=== PATIENT | female | born 1985 | race African-American/Black ===

== ENCOUNTER 2017-06-04 16:40 | Emergency (ER) | payer MEDICAID ==
[2017-06-04] MEDS ORDERED: BUPIVACAINE HCL 0.5 % INJ/PF 30 ML SDV INJ ONE (17:20)
[2017-06-04] MEDS ORDERED: PENICILLIN V POTASSIUM 500 MG TABLET PO ONE (17:23)
--- NOTE | 2017-06-04 17:24 | ER Document Report ---
HPI - HPI Patient complains to provider of: toothache Pain Level: 5 Context: patient is a 31 year old 8 week female who presents to the ED complaining of toothache of tooth 18 which had been fractured years ago. She states she has been having pain since yesterday after dinner. She denies any foul drainage or odor, fevers or chills. Patient states that she is ready taking Keflex for UTI prescribed by her doctor. And she plans on following up with her dentist on Wednesday. - REPRODUCTIVE Reproductive: DENIES: : Past Medical History - Social History Smoking Status: Former Smoker Family History: Arthritis, DM, Hypertension, Malignancy, Other - No early heart attack. No pulmonary emboli. - Past Medical History Cardiac Medical History: Denies: Hx Coronary Artery Disease, Hx Heart Attack, Hx Hypertension Pulmonary Medical History: Denies: Hx Asthma, Hx Bronchitis, Hx COPD, Hx Pneumonia Neurological Medical History: Denies: Hx Cerebrovascular Accident, Hx Seizures Endocrine Medical History: Reports: Hx Diabetes Mellitus Type 2 Musculoskeltal Medical History: Denies Hx Arthritis Psychiatric Medical History: Reports: Hx Anxiety Past Surgical History: Reports: Hx Gynecologic Surgery - fibroid removal - Immunizations Immunizations up to date: Yes Hx Diphtheria, Pertussis, Tetanus Vaccination: Yes Vertical Provider Document - CONSTITUTIONAL Agree With Documented VS: Yes Notes: PHYSICAL EXAM GENERAL: Alert, interacts well. HEENT: NCAT, evidence of fracture of tooth 18 without any gingival tenderness, inflammation, abscess, purulent drainage MMM, Uvula midline. Airway patent. No evidence of tonsillar enlargement, peritonsillar abscess, facial swelling NECK: Full range of motion. Supple. Trachea midline. No evidence of Kem's angina LUNGS: Clear to auscultation bilaterally, no wheezes, rales, or rhonchi. No respiratory distress. HEART: Regular rate and rhythm. No murmurs, gallops, or rubs. NEUROLOGICAL: Alert and oriented x4. Normal speech. PSYCH: Normal affect, normal mood. - INFECTION CONTROL TRAVEL OUTSIDE OF THE [place] IN LAST 30 DAYS: No - RESPIRATORY O2 Sat by Pulse Oximetry: 98 Course - Re-evaluation Re-evalutation: 06/04/17 17:58 Presentation is most consistent with likely an infected tooth. Airway is patent. Vitals within normal limits. Patient is able swallow without any difficulty. There is no significant facial swelling. Patient to continue current antibiotics. I've instructed to follow-up with dentistry as earliest ability for definitive management. Return precautions and follow-up recommendations have been discussed at length. - Vital Signs Vital signs: Temp Pulse Resp BP Pulse Ox 98.5 F 93 16 128/78 H 98 06/04/17 16:44 06/04/17 16:44 06/04/17 16:44 06/04/17 16:44 06/04/17 16:44 Procedures - Additional Procedures Dental block Additional Procedures: Other - Patient received a 5 cc 0.5% Sensorcaine infra alveolar block of the left lower jaw with complete resolution of her pain and no complications Discharge - Discharge Clinical Impression: Toothache Condition: Good Disposition: HOME, SELF-CARE Additional Instructions: You have been seen for dental pain. It is very important that you follow-up with a dentist for definitive care. Please return if you develop fever greater than 101, swelling in your face, vomiting, difficulty breathing or swallowing, or any other symptoms that are concerning to you. For pain you should take Tylenol 325 mg to 650 mg every 6-8 hours as needed for pain [facility] [address] [place], [place] Wednesday mornings, by appointment [facility] [address] [place] [address] [facility] [address] [facility] [address] [facility] ([facility]) [facility] Emergency Department [facility] [address] [email or web address] [address] [place] [address] Wednesday- 8:00am to 5:00 pm Will see patients from other [facility]. Charges based on income and family size and accepts Medicare, Medicaid, and Insurances Will pull molars [facility]ics [facility] [id number] Hours of Operation 8:00 am - 4:30 pm weekdays The following dental offices accept Medicaid: [facility] Dr. Holbrook Dr. Barriga Dr. Quintana Dr. Randolph Laurent [place], [place], and [place] oral surgery Dr. Schafer ([place]) Dr. Walter ([place]) [facility] Drs. Valencia ([place]) Dr. Brown ([place]) [facility] Dr. Trevizo ([place]) Drs. Lawson and ([place]) Medicaid Care Line Referrals: MCKENNA CHUA MD [Primary Care Provider] - Follow up as needed
[2017-06-04 18:31] VITALS: BP 123/76
== END 2017-06-04 18:28 | disposition home or self-care (01) ==
LOC: ER 16:40
PROC: 3E0T3BZ Introduction of Anesthetic Agent into Peripheral Nerves and Plexi, Percutaneous Approach (ICD-10-PCS; principal; 2017-06-04)
DX: K08.89 Other specified disorders of teeth and supporting structures (principal); Z87.891 Personal history of nicotine dependence
CPT/HCPCS: 99282

== ENCOUNTER 2017-07-03 17:45 | Emergency (ER) | payer MEDICAID ==
[2017-07-03 17:50] VITALS: BP 123/73
--- NOTE | 2017-07-03 18:45 | ER Document Report ---
ED ENT - General Chief Complaint: Sore Throat Stated Complaint: THROAT PAIN,COUGH Time Seen by Provider: 07/03/17 18:00 Mode of Arrival: Ambulatory Information source: Patient Notes: 31-year-old female presented to ED for itchy throat 2 days ago then cough and sore throat yesterday. She had some postnasal drip. She is 5-1/2 months . TRAVEL OUTSIDE OF THE [place] IN LAST 30 DAYS: No - HPI Patient complains to provider of: Throat problem Onset: Other Onset/Duration: Gradual - 2 days Quality of pain: Other - Sore Severity: Moderate Pain Level: 3 Context: Recent Illness Location of pain: Throat Associated symptoms: Cough, Runny nose, Sinus drainage, Sore throat, Other - Have an half months Similar symptoms previously: Yes Recently seen / treated by doctor: Yes - Related Data Allergies/Adverse Reactions: No Known Allergies Allergy (Verified 07/03/17 17:45) Past Medical History - General Information source: Patient - Social History Smoking Status: Former Smoker Cigarette use (# per day): No Chew tobacco use (# tins/day): No Smoking Education Provided: No Frequency of alcohol use: None Drug Abuse: None Lives with: Family Family History: Arthritis, DM, Hypertension, Malignancy, Other - No early heart attack. No pulmonary emboli. Patient has suicidal ideation: No Patient has homicidal ideation: No - Past Medical History Cardiac Medical History: Reports: None Pulmonary Medical History: Reports: None EENT Medical History: Reports: None Neurological Medical History: Reports: None Endocrine Medical History: Reports: Hx Diabetes Mellitus Type 2 Renal/ Medical History: Reports: None Malignancy Medical History: Reports: None GI Medical History: Reports: None Musculoskeltal Medical History: Reports None Skin Medical History: Reports None Psychiatric Medical History: Reports: Hx Anxiety Traumatic Medical History: Reports: None Infectious Medical History: Reports: None Past Surgical History: Reports: Hx Gynecologic Surgery - fibroid removal - Immunizations Immunizations up to date: Yes Hx Diphtheria, Pertussis, Tetanus Vaccination: Yes Review of Systems - Review of Systems Constitutional: No symptoms reported EENT: Nose discharge, Sinus discharge, Throat pain Cardiovascular: No symptoms reported Respiratory: Cough Gastrointestinal: No symptoms reported Genitourinary: No symptoms reported Female Genitourinary: No symptoms reported Musculoskeletal: No symptoms reported Skin: No symptoms reported Hematologic/Lymphatic: No symptoms reported Neurological/Psychological: No symptoms reported Physical Exam - Vital signs Vitals: Temp Pulse Resp BP Pulse Ox 98.1 F 86 18 123/73 100 07/03/17 17:49 07/03/17 17:49 07/03/17 17:49 07/03/17 17:49 07/03/17 17:49 Interpretation: Normal - General General appearance: Appears well, Alert - HEENT Head: Normocephalic, Atraumatic Eyes: Normal Pupils: PERRL Ears: Normal External canal: Normal Tympanic membrane: Normal Sinus: Normal Nasal: Purulent discharge, Swelling Mouth/Lips: Normal Mucous membranes: Normal Pharynx: Post nasal drainage Neck: Normal - Respiratory Respiratory status: No respiratory distress Chest status: Nontender Breath sounds: Nonproductive cough. No: Productive cough, Rales, Rhonchi, Stridor, Wheezing Chest palpation: Normal - Cardiovascular Rhythm: Regular Heart sounds: Normal auscultation Murmur: No - Abdominal Inspection: Normal Distension: No distension Bowel sounds: Normal Tenderness: Nontender Organomegaly: No organomegaly - Back Back: Normal, Nontender - Extremities General upper extremity: Normal inspection, Nontender, Normal color, Normal ROM , Normal temperature General lower extremity: Normal inspection, Nontender, Normal color, Normal ROM , Normal temperature, Normal weight bearing. No: Puja's sign - Neurological Neuro grossly intact: Yes Cognition: Normal Orientation: AAOx4 [place] Coma Scale Eye Opening: Spontaneous [place] Coma Scale Verbal: Oriented [place] Coma Scale Motor: Obeys Commands [place] Coma Scale Total: 15 Speech: Normal Motor strength normal: LUE, RUE, LLE, RLE Sensory: Normal - Psychological Associated symptoms: Normal affect, Normal mood - Skin Skin Temperature: Warm Skin Moisture: Dry Skin Color: Normal Course - Vital Signs Vital signs: Temp Pulse Resp BP Pulse Ox 98.1 F 86 18 123/73 100 07/03/17 17:49 07/03/17 17:49 07/03/17 17:49 07/03/17 17:49 07/03/17 17:49 Discharge - Discharge Clinical Impression: URI (upper respiratory infection) Qualifiers: URI type: unspecified URI Qualified Code(s): J06.9 - Acute upper respiratory infection, unspecified Condition: Stable Disposition: HOME, SELF-CARE Additional Instructions: UPPER RESPIRATORY ILLNESS: You have a viral infection of the respiratory passages -- a "cold." This common infection causes nasal congestion, drainage, and often sore throat and cough. It is highly contagious. The disease usually lasts about 10 to 14 days. There is no "cure" for the viral infection -- it must run its course. If there is a complication, such as bacterial infection in the nose, sinuses, middle ear, or bronchial tubes, antibiotics may be required. The antibiotics won't affect the virus. Drink plenty of fluids. A humidifier may help. An expectorant medication or decongestant may make you more comfortable. Use acetaminophen or ibuprofen for fever or aches. See the doctor if fever persists over two days, if there is any significant worsening of your symptoms, or if you simply fail to improve as expected. USE OF ACETAMINOPHEN (Tylenol): Acetaminophen may be taken for pain relief or fever control. It's much safer than aspirin, offering a wider range of "safe" dosages. It is safe during . Some brand names are Tylenol, Panadol, Datril, Anacin 3, Tempra, and Liquiprin. Acetaminophen can be repeated every four hours. The following are maximum recommended dosages: >89 pounds or adults 650 mg to 900 mg Acetaminophen can be repeated every four hours. Maximum dose not to exceed 4000 mg a day. Salt and soda solution 1 quart of water 1 tablespoon of salt 1 teaspoon of baking soda Mixed 3 ingredients together and boil for 1 minute Placed in a covered quart jar Use 1/2 ounce of cold solution to gargle 3 times a day FOLLOW-UP CARE: If you have been referred to a physician for follow-up care, call the physician s office for an appointment as you were instructed or within the next two days. If you experience worsening or a significant change in your symptoms, notify the physician immediately or return to the Emergency Department at any time for re-evaluation. Referrals: MCKENNA CHUA MD [Primary Care Provider] - Follow up as needed [facility] [Provider Group] - Follow up as needed
== END 2017-07-03 18:30 | disposition home or self-care (01) ==
LOC: ER 17:45
DX: J06.9 Acute upper respiratory infection, unspecified (principal); R05 Cough; R09.82 Postnasal drip; R09.89 Other specified symptoms and signs involving the circulatory and respiratory systems; Z87.891 Personal history of nicotine dependence
CPT/HCPCS: 99282

== ENCOUNTER 2017-08-22 14:16 | Outpatient (CLI) | payer MEDICAID ==
[2017-08-22 15:00] LABS: AMORPHOUS SEDIMENT,URINE TRACE /HPF; APPEARANCE,URINE CLOUDY; BILIRUBIN,URINE NEGATIVE (NEGATIVE); COLOR,URINE YELLOW; GLUCOSE, URINE NEGATIVE (NEGATIVE); KETONES,URINE 20 mg/dL (NEGATIVE); LEUKOCYTE ESTERASE,URINE NEGATIVE (NEGATIVE); NITRITE,URINE NEGATIVE (NEGATIVE); PROTEIN,URINE NEGATIVE (NEGATIVE); URINE SPECIFIC GRAVITY 1.013; UROBILINOGEN,URINE NEGATIVE mg/dL (<2.0)
[2017-08-22 15:10] LABS: URINE AMPHETAMINES SCREEN NEGATIVE; URINE BARBITURATES SCREEN NEGATIVE; URINE BENZODIAZEPINES SCREEN NEGATIVE; URINE COCAINE SCREEN NEGATIVE; URINE MARIJUANA (THC) SCREEN NEGATIVE; URINE METHADONE SCREEN NEGATIVE; URINE PHENCYCLIDINE SCREEN NEGATIVE
== END 2017-08-22 15:46 | disposition home or self-care (01) ==
LOC: LC 14:16
PROVIDERS: ATTEND Obstetrics & Gynecology
PROC: 4A1HXCZ Monitoring of Products of Conception, Cardiac Rate, External Approach (ICD-10-PCS; principal; 2017-08-22)
DX: O36.8120 Decreased fetal movements, second trimester, not applicable or unspecified (principal); Z3A.27 27 weeks gestation of pregnancy
CPT/HCPCS: 80307; 81001

== ENCOUNTER 2017-09-28 18:24 | Outpatient (CLI) | payer MEDICAID ==
--- NOTE | 2017-09-28 19:10 | Non Stress Test Report ---
Non Stress Test Datetime Report Generated by CPN: 09/28/2017 19:10 DEMOGRAPHIC EGA NST: 33.1 INDICATION Indication for Study: Diabetes Mellitus; Ordered by Provider VITAL SIGNS Temperature - NST: 98.0 Pulse - NST: 92 RESP - NST: 20 NBPSYS NST: 107 NBPDIA NST: 59 MONITORING Monitor Explained: Monitor Explained; Test Explained; Patient Verbalized Understanding Time on Monitor: 09/28/2017 18:24 Time off Monitor: 09/28/2017 18:58 NST Duration: 34 NST INTERVENTIONS NST Interventions: PO Hydration; Reposition Patient Physician Notified NST: Dr Mancilla BABY A: [id number] BABY A Movement : Present Contraction Frequency : denies FHR Baseline : 140 Accelerations : 15X15 Decelerations : None Variability : Moderate 6-25bpm NST Review: Meets Criteria for Reactive NST NST Review and Verified By : Gilmer Erazo RN NSSy Results: Reactive NST REPORT Report Trigger: Send Report
== END 2017-09-28 19:00 | disposition home or self-care (01) ==
LOC: LC 18:24
PROVIDERS: ATTEND Obstetrics & Gynecology
PROC: 4A1HXCZ Monitoring of Products of Conception, Cardiac Rate, External Approach (ICD-10-PCS; principal; 2017-09-28)
DX: O24.419 Gestational diabetes mellitus in pregnancy, unspecified control (principal); Z3A.33 33 weeks gestation of pregnancy
CPT/HCPCS: 59025

== ENCOUNTER 2017-10-07 16:39 | Outpatient (CLI) | payer MEDICAID ==
--- NOTE | 2017-10-07 17:42 | Non Stress Test Report ---
Non Stress Test Datetime Report Generated by CPN: 10/07/2017 17:42 DEMOGRAPHIC EGA NST: 34.3 INDICATION Indication for Study: Diabetes Mellitus; Ordered by Provider MONITORING Monitor Explained: Monitor Explained; Test Explained; Patient Verbalized Understanding Time on Monitor: 10/07/2017 16:52 Time off Monitor: 10/07/2017 17:39 NST Duration: 47 NST INTERVENTIONS NST Interventions: PO Hydration; Reposition Patient Physician Notified NST: Corinne Francisco Javier CNM BABY A: [id number] BABY A Movement : Present Contraction Frequency : None FHR Baseline : 145 Accelerations : 15X15 Decelerations : None Variability : Moderate 6-25bpm NST Review: Meets Criteria for Reactive NST NST Review and Verified By : KAREEM Norris NST Results: Reactive NST REPORT Report Trigger: Send Report
== END 2017-10-07 17:44 | disposition home or self-care (01) ==
LOC: LC 16:39
PROVIDERS: ATTEND Student in an Organized Health Care Education/Training Program
PROC: 4A1HXCZ Monitoring of Products of Conception, Cardiac Rate, External Approach (ICD-10-PCS; principal; 2017-10-07)
DX: O24.419 Gestational diabetes mellitus in pregnancy, unspecified control (principal); Z3A.34 34 weeks gestation of pregnancy
CPT/HCPCS: 59025

== ENCOUNTER 2017-11-12 20:03 | Outpatient (CLI) | payer MEDICAID ==
--- NOTE | 2017-11-12 23:23 | Non Stress Test Report ---
Non Stress Test Datetime Report Generated by CPN: 11/12/2017 23:23 DEMOGRAPHIC EGA NST: 39.4 INDICATION Indication for Study: Ordered by Provider MONITORING Monitor Explained: Monitor Explained; Test Explained; Patient Verbalized Understanding Time on Monitor: 11/12/2017 21:00 Time off Monitor: 11/12/2017 21:24 NST Duration: 24 NST INTERVENTIONS NST Interventions: PO Hydration; Reposition Patient Physician Notified NST: Dr. Zaldivar BABY A: [id number] BABY A Movement : Present Contraction Frequency : irregular FHR Baseline : 140 Accelerations : 15X15 Decelerations : None Variability : Moderate 6-25bpm NST Review: Meets Criteria for Reactive NST NST Review and Verified By : josé miguel hurley rn NST Results: Reactive NST REPORT Report Trigger: Send Report
== END 2017-11-12 21:34 | disposition home or self-care (01) ==
LOC: LC 20:03
PROVIDERS: ATTEND Student in an Organized Health Care Education/Training Program
PROC: 4A1HXCZ Monitoring of Products of Conception, Cardiac Rate, External Approach (ICD-10-PCS; principal; 2017-11-12)
DX: O47.1 False labor at or after 37 completed weeks of gestation (principal); Z3A.39 39 weeks gestation of pregnancy
CPT/HCPCS: 59025

== ENCOUNTER 2017-11-15 09:55 | Inpatient (IN) | payer MEDICAID ==
[2017-11-15 10:29] LABS: AMNISURE (ROM) POSITIVE (NEGATIVE)
[2017-11-15] MEDS ORDERED: RINGERS SOLUTION,LACTATED 1,000 ML IV ONE (11:06)
[2017-11-15] MEDS ORDERED: DINOPROSTONE 10 MG VAGINAL INSERT.SR ONE (11:16)
[2017-11-15 11:42] LABS: APPEARANCE,URINE SLIGHTLY-CLOUDY; BILIRUBIN,URINE NEGATIVE (NEGATIVE); COLOR,URINE YELLOW; GLUCOSE, URINE NEGATIVE (NEGATIVE); KETONES,URINE NEGATIVE (NEGATIVE); LEUKOCYTE ESTERASE,URINE TRACE (NEGATIVE); NITRITE,URINE NEGATIVE (NEGATIVE); PROTEIN,URINE NEGATIVE (NEGATIVE); UROBILINOGEN,URINE NEGATIVE mg/dL (<2.0)
--- NOTE | 2017-11-15 11:59 | Admission Physical ---
Datetime Report Generated by CPN: 11/15/2017 11:59 CURRENT ADMISSION Chief Complaint: Suspected Ruptured Membranes Indication for Induction: Post Dates Indication for Induction- Other: PROM Admit Impression : Term, Intrauterine Admit Plan: Admit to Unit; Initiate Labor Induction Protocol ALLERGIES Medication Allergies: No Medication Allergies: No Known Allergies (11/15/2017) Latex: No Latex Allergies Food Allergies: None Environmental Allergies: None OBSTETRICAL HISTORY EDC: 11/15/2017 00:00 : 1 Para: 0 Term: 0 : 0 SAB: 0 IAB: 0 Ectopic: 0 Livin Cesareans: 0 VBACs: 0 Multiple Births: 0 Gestational Diabetes: No Rh Sensitization: No Incompetent Cervix: No BRET: No Infertility: No ART Treatment: No Uterine Anomaly: No IUGR: No Hx Previous C/S: No Macrosomia: No Hx Loss/Stillborn: No PIH: No Hx : No Placenta Previa/Abruption: No Depression/PP Depression: No PTL/PROM: No Post Hemorrhage: No Current Procedures: Ultrasound Obstetrical History Comments: G1 - current - T2DM on metformin, late PNC, obesity, uterine fibroid SEE RECORDS Alcohol: No Marijuana : No Cocaine: No Other Illicit Drugs: No Cigarettes: Former Smoker. [id number] Cigarette Comments: Quite at beginning of MEDICAL HISTORY Diabetes: No Diabetes Type: Type II - NIDDM Blood Transfusion: No Pulmonary Disease (Asthma, TB): No Breast Disease: No Hypertension: No Patent Prosecution Paralegal Surgery: No Heart Disease: No Hosp/Surgery: No Autoimmune Disorder: No Anesthetic Complications: No Kidney Disease: No Abnormal Pap Smear: No Neuro/Epilepsy: No Psychiatric Disorders: No Other Medical Diseases: No Hepatitis/Liver Disease: No Significant Family History: No Varicosities/Phlebitis: No Trauma/Violence : No Thyroid Dysfunction: No INFECTIOUS HISTORY Gonorrhea: No Genital Herpes: No Chlamydia: No Tuberculosis: No Syphilis: No Hepatitis: No HIV/AIDS Exposure: No Rash or Viral Illness: No HPV: No PHYSICAL EXAM General: Normal HEENT: Normal Neurologic: Normal Thyroid: Deferred Heart: Normal Lungs: Normal Breast: Deferred Back: Normal Abdomen: Abnormal Genitourinary Exam: Normal Extremities: Abnormal DTRs: Deferred Pelvic Type: Adequate Physical Exam Comments: edema to lower abdomen and legs Vital Signs: Reviewed; Within Normal Limits VAGINAL EXAM Dilatation: ft Effacement: 50 Station: -3 Contraction Comments: rare MEMBRANES Membranes: Ruptured Amniotic Fluid Color: Clear FETUS A EGA: 40.0 Monitoring: External US FHR- Baseline: 145 Variability: Moderate 6-25bpm Decelerations: Variable FHR Category: Category II Estimated Weight (gm): 3200 Presentation: Vertex Presentation- Other: by sono Admit Comment: WITH PROM SINCE 0900 TODAY, CLEAR FLUID. DIABETES TYPE 2 ON METFORMIN. MULTIPLE ANOMALIES, OBESITY, LATE PNC, 17CM FIBROID. C/W DR QUISPE, BLOOD PRODUCTS AVAILABLE. CERVIDIL PLACED AT 1115. GBS POS-PENICILLIN ORDERED PLANS FOR LABOR AND DELIVERY Labor and Delivery: None Pain Management: Epidural Feeding Preference: Breast Benefit of Breast Feed Discussed: Yes Circumcision: N/A INFORMED CONSENT Assignment: Abigail Quispe MD Signature: with User ID: [email or web address] : with User ID: [email or web address]
[2017-11-15 12:03] LABS: HEMOGLOBIN 11.1 g/dL (12.0-15.5); MEAN CORPUSCULAR HGB CONC 33.7 g/dL (32.0-36.0); MEAN CORPUSCULAR VOLUME 89 fl (80-97); PLATELET COUNT 215 10^3/uL (150-450); RED CELL DISTRIBUTION WIDTH 14.6 % (11.5-14.0); WHITE BLOOD COUNT 6.3 10^3/uL (4.0-10.5)
[2017-11-15 12:07] LABS: URINE AMPHETAMINES SCREEN NEGATIVE; URINE BARBITURATES SCREEN NEGATIVE; URINE BENZODIAZEPINES SCREEN NEGATIVE; URINE COCAINE SCREEN NEGATIVE; URINE MARIJUANA (THC) SCREEN NEGATIVE; URINE METHADONE SCREEN NEGATIVE; URINE PHENCYCLIDINE SCREEN NEGATIVE
[2017-11-15] MEDS ORDERED: DINOPROSTONE 10 MG VAGINAL INSERT.SR PV ONE (12:15)
[2017-11-15] MEDS ORDERED: PENICILLIN G-K 5 MILLION UNIT VIAL IV ONE (12:27)
[2017-11-15] MEDS ORDERED: PENICILLIN G-K 5 MILLION UNIT VIAL ONE (12:33)
[2017-11-15] MEDS ORDERED: MEASLES,MUMPS&RUBELLA VACC/PF 0.5 ML VIAL SUBCUT PRN ×2 (12:44→17:20)
[2017-11-15] MEDS ORDERED: DIPHENHYDRAMINE HCL 25 MG CAPSULE PO PRN (12:44)
[2017-11-15] MEDS ORDERED: PSEUDOEPHEDRINE HCL 30 MG TABLET PO PRN (12:44)
[2017-11-15] MEDS ORDERED: PROMETHAZINE HCL 25 MG SUPP.RECT PR PRN (12:44)
[2017-11-15] MEDS ORDERED: PROMETHAZINE HCL 25 MG TABLET PO PRN (12:44)
[2017-11-15] MEDS ORDERED: PROMETHAZINE HCL INJ 25 MG/1 ML VIAL IV PRN ×4 (12:44→17:20)
[2017-11-15] MEDS ORDERED: DIBUCAINE 1% OINTMENT 28 GM TP PRN (12:44)
[2017-11-15] MEDS ORDERED: ZOLPIDEM TARTRATE 5 MG TABLET PO PRN (12:44)
[2017-11-15] MEDS ORDERED: OXYTOCIN/NORMAL SALINE 20 UNIT/1,000 ML RTUINJ IV PRN ×2 (12:44→17:20)
[2017-11-15] MEDS ORDERED: GLYCERIN/WITCH HAZEL LEAF 1 EACH MED..PAD TP PRN (12:44)
[2017-11-15] MEDS ORDERED: MAGNESIUM HYDROXIDE SUSP 30 ML UDCUP PO PRN (12:44)
[2017-11-15] MEDS ORDERED: DIPH/PERTUSS(ACELL)/TETANUS VAC/PF 0.5 ML SYR (>=10YO) IM PRN ×2 (12:44→17:20)
[2017-11-15] MEDS ORDERED: BENZOCAINE/MENTHOL AEROSOL SPRAY 56 ML TOP PRN (12:44)
[2017-11-15] MEDS ORDERED: ACETAMINOPHEN WITH CODEINE #3 TABLET PO PRN ×2 (12:44)
[2017-11-15] MEDS ORDERED: NA PHOS,M-B/NA PHOS,DI-BA (ADULT) 133 ML ENEMA PR PRN (12:44)
[2017-11-15] MEDS ORDERED: IBUPROFEN 800 MG TABLET PO SCH ×2 (14:00→18:00)
[2017-11-15] MEDS ORDERED: ACETAMINOPHEN 100 ML IV PRN ×3 (14:49→17:20)
[2017-11-15] MEDS ORDERED: ACETAMINOPHEN 100 ML IV ONE ×2 (14:59→16:01)
[2017-11-15] MEDS ORDERED: PENICILLIN G POTASSIUM 2,500,000 UNIT in DEXTROSE 5%-WATER 50 ML IV SCH (15:07)
[2017-11-15] MEDS ORDERED: CEFAZOLIN 2 GM/D5W RTU 2 GM/50 ML RTUPB IV ONE (15:50)
[2017-11-15] MEDS ORDERED: CITRIC ACID/SODIUM CITRATE ORAL SOLN 15 ML UDCUP ONE (15:50)
[2017-11-15] MEDS ORDERED: EPHEDRINE SULFATE INJ 50 MG/1 ML AMPULE ONE (15:59)
[2017-11-15] MEDS ORDERED: TRANEXAMIC ACID INJ/PF 1,000 MG/10 ML SDV IV ONE (15:59)
[2017-11-15] MEDS ORDERED: FENTANYL CITRATE INJ/PF 100 MCG/2 ML AMPUL ONE (15:59)
[2017-11-15] MEDS ORDERED: VASOPRESSIN INJ 20 UNIT/1 ML VIAL ONE (16:00)
[2017-11-15] MEDS ORDERED: ONDANSETRON HCL INJ/PF 4 MG/2 ML SDV ONE (16:00)
[2017-11-15] MEDS ORDERED: MIDAZOLAM 2 MG/2 ML INJ ONE (16:00)
[2017-11-15] MEDS ORDERED: MORPHINE SULFATE 10 MG/ML INJ ONE (16:00)
[2017-11-15] MEDS ORDERED: TETRACAINE HCL/PF 20MG/2ML AMPULE (SPINAL) ONE (16:01)
[2017-11-15] MEDS ORDERED: OXYTOCIN 10 UNIT/ML VIAL ONE (16:08)
[2017-11-15] MEDS ORDERED: OXYCODONE-ACETAMINOPHEN 5-325 MG TABLET PO PRN ×3 (16:40→17:20)
[2017-11-15] MEDS ORDERED: MEPERIDINE HCL/PF INJ 25 MG/1 ML DISP.SYRIN IV PRN (16:40)
[2017-11-15] MEDS ORDERED: FENTANYL CITRATE INJ/PF 100 MCG/2 ML AMPUL IV PRN ×3 (16:40)
[2017-11-15] MEDS ORDERED: DIPHENHYDRAMINE HCL 50 MG/ML VIAL IV PRN (16:40)
[2017-11-15] MEDS ORDERED: MORPHINE SULFATE 10 MG/ML INJ IV PRN ×2 (16:40→17:20)
[2017-11-15] MEDS ORDERED: ACETAMINOPHEN 325 MG TABLET PO PRN (17:20)
[2017-11-15] MEDS ORDERED: SIMETHICONE 80 MG TAB.CHEW PO PRN (17:20)
[2017-11-15] MEDS ORDERED: KETOROLAC TROMETHAMINE INJ/PF 30 MG/1 ML SDV ONE (17:47)
--- NOTE | 2017-11-15 17:54 | OPERATIVE REPORT E ---
Operative Report NAME: CISCO SIMMONS : 1985 AGE: 32Y DATE OF SURGERY: 11/15/2017 ROOM: LR200 PREOPERATIVE DIAGNOSES: 1. IUP AT 40 WEEKS AND 1 DAY. 2. NONREASSURING HEART TONES. 3. LARGE INTRAMURAL INTRAUTERINE FIBROID. POSTOPERATIVE DIAGNOSES: 1. IUP AT 40 WEEKS AND 1 DAY. 2. NONREASSURING HEART TONES. 3. LARGE INTRAMURAL INTRAUTERINE FIBROID. OPERATION: Low transverse hysterotomy section. SURGEON: SIXTO QUISPE M.D. ANESTHESIA: Dr. Unger with a spinal. FINDINGS: A female infant in cephalic presentation, with Apgars of 8 and 9. Meconium on amniotomy noted. Large fundal fibroid of the uterus that was preventing the uterus from being exteriorized. Seemed to go the entire width of the uterus, as noted from palpation. ESTIMATED BLOOD LOSS: Approximately 800 mL. PATHOLOGY: Placenta. PROCEDURE: Patient was taken to the operating room, prepared and draped in normal sterile fashion in the supine position with a leftward tilt. A transverse skin incision was made with a scalpel and carried through to the underlying layer of fascia with the same scalpel. The fascia was excised in the midline and extended laterally with Mayos. The fascia was then dissected from the rectus muscle bluntly. The rectus muscle was divided and the peritoneal cavity was entered bluntly, with good visualization of the bladder and the uterus. A bladder blade was inserted, and the hysterotomy was nicked with a scalpel and extended laterally with surgeon finger fracture. The was then delivered atraumatically. The nose and mouth were suctioned with a suction bulb, and the cord was clamped and cut, and the infant was handed off to waiting roller man. Attempted to exteriorize the uterus. Was unsuccessful, due to the uterine size; therefore, the hysterotomy was closed in-situ with 0 Monocryl in a running locked fashion. A second layer of the same suture was used to imbricate to ensure hemostasis. The peritoneal cavity was carefully inspected, and the hysterotomy was noted to be hemostatic. The rectus muscle and peritoneum were reapproximated with a mattress stitch of 2-0 chromic. The fascia was closed with 0 Vicryl. The subcutaneous layer was closed with plain catgut and the skin was closed with 4-0 Vicryl. Patient tolerated procedure well. Sponge, lap and needle counts were correct x2, and the patient was taken to recovery in stable condition. DICTATING PHYSICIAN: SIXTO QUISPE M.D. [id number] PHY#: [id number] ID: [id number] JOB#: [id number] ACCT: [id number] cc:SIXTO QUISPE M.D. > [facility]
[2017-11-15] MEDS ORDERED: DOCUSATE SODIUM 100 MG CAPSULE PO SCH (18:00)
[2017-11-15] MEDS ORDERED: FERROUS SULFATE 325 MG TABLET PO SCH (18:00)
[2017-11-15] MEDS ORDERED: OXYTOCIN/NORMAL SALINE 20 UNIT/1,000 ML RTUINJ ONE (18:23)
--- NOTE | 2017-11-15 20:15 | Delivery Summary ---
Del Sum A-C Datetime Report Generated by CPN: 11/15/2017 20:15 DELIVERY PERSONNEL DELIVERY PERSONNEL: [id number] Delivery Doctor:: Abigail Saldivar MD Anesthesiologist:: Marvin Unger MD FISH AND GAME WARDEN:: Christina Rios FISH AND GAME WARDEN Woods Overseer:: Narcisa Robles RN Neonatal Nurse Practitioner:: ANTONY Weeks Nursery Nurse:: Sneha Guillen RN Fire Loss Prevention Engineer/WHARF LABOURER: Sneha Moreno CST Fire Loss Prevention Engineer/WHARF LABOURER: Cruz Tellez CST Additional Personnel: : Lu Lam RN MATERNAL INFORMATION Delivery Anesthesia: Spinal Medications After Delivery: Pitocin Bolus-Please Comment; Pitocin Drip 20 Units/1000ml NSS Maternal Complications: None LABOR SUMMARY EDC: 11/15/2017 00:00 No. Babies in Womb: 1 Attempted: No Labor Anesthesia: None LABOR INFORMATION Reason for Induction: Other Reason for Induction- Other: PROM Cervical Ripening Agents: Cervidil Oxytocin: N/A Group B Beta Strep: Positive Antibiotics # of Doses: 1 Antibiotics Time of Last Dose: 1242 Name of Antibiotic Given: PENICILLIN G Steroids Given: None Reason Steroids Not Administered: Not Applicable MEMBRANES Membranes Rupture Method: Spontaneous Rupture of Membranes: 11/15/2017 09:00 Length of Rupture (hr): 7.58 Amniotic Fluid Color: Clear STAGES OF LABOR Stage 3 hr: 0 Stage 3 min: 1 CSECTION DELIVERY Primary Indication: Nonreassuring Status CSection Urgency: Non-Scheduled CSection Incidence: Primary Labor: N/A Elective: Nonelective CSection Incision: Lower Uterine Transverse BABY A INFORMATION Infant Delivery Date/Time: 11/15/2017 16:35 Method of Delivery: Born in Route : No : N/A Forceps: N/A Vacuum Extraction: N/A Shoulder Dystocia : No PRESENTATION/POSITION BABY A Presentation: Cephalic Cephalic Presentation: Vertex Breech Presentation: N/A PLACENTA INFORMATION BABY A Placenta Delivery Time : 11/15/2017 16:36 Placenta Method of Delivery: Manual Removal Placenta Status: Delivered SCORES BABY A Heart Rate 1 min: >100 bpm Resp Effort 1 min: Good Cry Reflex Irritability 1 min: Cough or Sneeze or Pulls Away Muscle Tone 1 min: Active Motion Color 1 min: Body Dales, Extremities Blue Resuscitation Effort 1 min: Tactile Stimulation SCORE 1 MIN: 9 Heart Rate 5 min: >100 bpm Resp Effort 5 min: Good Cry Reflex Irritability 5 min: Cough or Sneeze or Pulls Away Muscle Tone 5 min: Active Motion Color 5 min: Body Dales, Extremities Blue Resuscitation Effort 5 min: Tactile Stimulation SCORE 5 MIN: 9 INFANT INFORMATION BABY A Gestational Age at Delivery: 40.0 Gestational Status: Full Term- 39- 40.6 Weeks Outcome : Liveborn Condition : Stable Infant Sex: Female IDENTIFICATION BABY A Verification Date/Time: 11/15/2017 16:36 ID Band Number: [id number] Mother's Name Verified: Yes Infant RN Verifying : KAREEM Norris Additional Verifying Personnel: Pina Almazan CNA WEIGHT/LENGTH BABY A Birthweight (gm): 3425 Weight (lb): 7 Infant Weight (oz): 9 Infant Length (in): 20.00 Length (cm): 50.80 CORD INFORMATION BABY A No. Cord Vessels: 3 Nuchal Cord : N/A Cord Blood Taken: Yes-For Eval (Mom's Blood Type - or O+) ASSESSMENT BABY A Complications: Decreased Variability; Multiple Late Decels; Multiple Variable Decels Skin to Skin: Yes BABY B INFORMATION : N/A SIGNATURES : I was personally available for consultation and serving as supervising physician for the MLP.
[2017-11-15] MEDS: DOCUSATE SODIUM 100 MG CAPSULE PO SCH (20:25)
[2017-11-15] MEDS ORDERED: FAMOTIDINE 20 MG TABLET PO SCH (22:00)
[2017-11-15] MEDS ORDERED: KETOROLAC TROMETHAMINE INJ/PF 30 MG/1 ML SDV IV SCH (22:00)
[2017-11-15] MEDS: OXYCODONE-ACETAMINOPHEN 5-325 MG TABLET PO PRN (23:13)
[2017-11-16] MEDS: KETOROLAC TROMETHAMINE INJ/PF 30 MG/1 ML SDV IV SCH ×2 (01:51→09:08)
[2017-11-16] MEDS: OXYCODONE-ACETAMINOPHEN 5-325 MG TABLET PO PRN ×3 (05:14→22:28)
[2017-11-16 06:44] LABS: HEMATOCRIT 31.5 % (36.0-47.0); HEMOGLOBIN 10.6 g/dL (12.0-15.5); MEAN CORPUSCULAR HGB CONC 33.6 g/dL (32.0-36.0); MEAN CORPUSCULAR VOLUME 89 fl (80-97); PLATELET COUNT 195 10^3/uL (150-450); RED BLOOD COUNT 3.53 10^6/uL (3.72-5.28); RED CELL DISTRIBUTION WIDTH 14.7 % (11.5-14.0); WHITE BLOOD COUNT 11.4 10^3/uL (4.0-10.5)
[2017-11-16] MEDS: DOCUSATE SODIUM 100 MG CAPSULE PO SCH ×2 (09:09→17:47)
[2017-11-16] MEDS: PRENATAL VITAMIN W DHA CAPSULE PO SCH (09:10)
[2017-11-16] MEDS: METFORMIN HCL 500 MG TABLET PO SCH (09:10)
--- NOTE | 2017-11-16 09:35 | PDOC PROGRESS REPORT ---
Subjective-OB Progress Note for:: 11/16/17 Subjective: Doing well, eating bkf, friend at BS, no c/o Physical Exam (OB) Vital Signs: Temp Pulse Resp BP Pulse Ox 97.8 F 74 16 98/63 L 100 11/16/17 07:50 11/16/17 07:50 11/16/17 07:50 11/16/17 07:50 11/16/17 07:50 Intake & Output 11/15/17 11/16/17 11/17/17 06:59 06:59 06:59 Intake Total 300 Output Total 1300 Balance -1000 Weight 98.6 kg - Dressing Removed: No - Opsite CD&I - Lochia Lochia Amount: Scant < 10 ml Lochia Color: Rubra/Red - Abdomen Description: Tender, Round Hernia Present: No - Pt has uterine fibroid Fundal Description: Firm, Midline Fundal Height: u/u - u/2 Objective-Diagnostic Laboratory: 11/16/17 06:25 11/15/17 11/15/17 11/15/17 11:00 11:40 11:40 WBC 6.3 RBC 3.70 L Hgb 11.1 L Hct 33.0 L MCV 89 MCH 30.0 MCHC 33.7 RDW 14.6 H Plt Count 215 Urine Color YELLOW Urine Appearance SLIGHTLY-CLOUDY Urine pH 7.0 Ur Specific [place] 1.010 Urine Protein NEGATIVE Urine Glucose (UA) NEGATIVE Urine Ketones NEGATIVE Urine Blood NEGATIVE Urine Nitrite NEGATIVE Ur Leukocyte Esterase TRACE H Blood Type O POSITIVE Antibody Screen NEGATIVE 11/16/17 06:25 WBC 11.4 H RBC 3.53 L Hgb 10.6 L Hct 31.5 L MCV 89 MCH 30.0 MCHC 33.6 RDW 14.7 H Plt Count 195 Urine Color Urine Appearance Urine pH Ur Specific [place] Urine Protein Urine Glucose (UA) Urine Ketones Urine Blood Urine Nitrite Ur Leukocyte Esterase Blood Type Antibody Screen Assessment and Plan(PN) - Assessment and Plan (1) Status post repeat low transverse section Is this a current diagnosis for this admission?: Yes - Time Spent with Patient Time with patient: Less than 15 minutes Medications reviewed and adjusted accordingly: Yes - Disposition Anticipated Discharge: Home Within: within 24 hours
[2017-11-16] MEDS ORDERED: PRENATAL VITAMIN W DHA CAPSULE PO SCH (10:00)
[2017-11-16] MEDS ORDERED: SENNOSIDES/DOCUSATE 8.6-50 MG 1 EACH TABLET PO SCH (10:00)
[2017-11-16] MEDS ORDERED: (PENDING PHARMACY ID) (Prenatal No122/Iron/Folic Acid [Prenatal Multi Tablet] 1 EACH) PO SCH (10:00)
[2017-11-16] MEDS: IBUPROFEN 800 MG TABLET PO SCH (17:47)
[2017-11-17] MEDS: IBUPROFEN 800 MG TABLET PO SCH ×3 (00:15→13:31)
[2017-11-17] MEDS: OXYCODONE-ACETAMINOPHEN 5-325 MG TABLET PO PRN (06:35)
[2017-11-17] MEDS: DOCUSATE SODIUM 100 MG CAPSULE PO SCH (10:36)
[2017-11-17] MEDS: METFORMIN HCL 500 MG TABLET PO SCH (10:36)
[2017-11-17] MEDS: PRENATAL VITAMIN W DHA CAPSULE PO SCH (10:36)
--- NOTE | 2017-11-17 10:39 | PDOC DISCHARGE SUMMARY ---
Final Diagnosis Discharge Date: 11/17/17 - Final Diagnosis (1) Status post repeat low transverse section Is this a current diagnosis for this admission?: Yes Discharge Data - Discharge Medication Prescriptions: Oxycodone HCl/Acetaminophen [Percocet 5-325 mg Tablet] 1 tab PO Q4HP PRN #30 tablet PRN Reason: Ibuprofen [Motrin 800 mg Tablet] 800 mg PO Q8 #90 tablet Home Medications: Metformin HCl [Glucophage] 1,000 mg PO DAILY 06/10/15 No122/Iron/Folic Acid [ Multi Tablet] 1 each PO DAILY 09/28/17 Ibuprofen [Motrin 800 mg Tablet] 800 mg PO Q8 #90 tablet 11/17/17 Oxycodone HCl/Acetaminophen [Percocet 5-325 mg Tablet] 1 tab PO Q4HP PRN #30 tablet 11/17/17 Reason(s) for Admission: Ceasarean Section-Repeat Intrapartum Procedure(s): : Low Cervical, Transverse - Diagnosis Test Laboratory: Temp Pulse Resp BP Pulse Ox 97.7 F 72 17 113/73 100 11/17/17 08:10 11/17/17 08:10 11/17/17 08:10 11/17/17 08:10 11/17/17 08:10 11/15/17 11/15/17 11/16/17 11:00 11:40 06:25 RBC 3.70 L 3.53 L Hgb 11.1 L 10.6 L Hct 33.0 L 31.5 L Urine Opiates Screen NEGATIVE - Discharge information/Instructions Discharge Activity: Activity As Tolerated Discharge Diet: Regular Disposition: HOME, SELF-CARE Follow up with: [facility] in: 1
[2017-11-17 12:50] VITALS: BP 131/72
== END 2017-11-17 15:20 | disposition home or self-care (01) | DRG 765 ==
LOC: LC 09:55 → LR 10:55 → 2N 19:44
PROVIDERS: ADMIT Obstetrics & Gynecology; ATTEND Obstetrics & Gynecology
PROC: 10D00Z1 Extraction of Products of Conception, Low, Open Approach (ICD-10-PCS; principal; 2017-11-15)
PROC: 3E0P7VZ Introduction of Hormone into Female Reproductive, Via Natural or Artificial Opening (ICD-10-PCS; 2017-11-15)
PROC: 4A1HXCZ Monitoring of Products of Conception, Cardiac Rate, External Approach (ICD-10-PCS; 2017-11-15)
DX: O76 Abnormality in fetal heart rate and rhythm complicating labor and delivery (principal); O24.12 Pre-existing type 2 diabetes mellitus, in childbirth; O99.824 Streptococcus B carrier state complicating childbirth; O48.0 Post-term pregnancy; O34.13 Maternal care for benign tumor of corpus uteri, third trimester; D25.1 Intramural leiomyoma of uterus; O99.214 Obesity complicating childbirth; E66.9 Obesity, unspecified; Z68.35 Body mass index [BMI] 35.0-35.9, adult; O35.9XX0 Maternal care for (suspected) fetal abnormality and damage, unspecified, not applicable or unspecified; E11.9 Type 2 diabetes mellitus without complications; O42.02 Full-term premature rupture of membranes, onset of labor within 24 hours of rupture; Z87.891 Personal history of nicotine dependence; Z79.84 Long term (current) use of oral hypoglycemic drugs; Z3A.40 40 weeks gestation of pregnancy; Z37.0 Single live birth
CPT/HCPCS: 1961; 36415; 80307; 81005; 82962; 84112; 85027; 86592; 86850; 86900; 86901; 86920; 88307; 94760; 94799; J0131; J0690; J1885; J2250; J2270; J2405; J2540; J2590; J3010; J3490

== ENCOUNTER 2017-12-03 15:29 | Emergency (ER) | payer MEDICAID ==
[2017-12-03 15:42] VITALS: BP 119/88
--- NOTE | 2017-12-03 16:22 | ER Document Report ---
ED General - General Chief Complaint: Post Surgical Bleeding Stated Complaint: BLEED POST OP Time Seen by Provider: 12/03/17 16:18 Mode of Arrival: Ambulatory Information source: Patient Notes: 32-year-old female who delivered 18 days ago presents with concerns of incision site opening. Patient denies any fevers or chills denies any drainage denies any pain TRAVEL OUTSIDE OF THE [place] IN LAST 30 DAYS: No - HPI Onset: Yesterday Onset/Duration: Sudden Quality of pain: No pain Severity: Mild Pain Level: Denies Associated symptoms: Other Exacerbated by: Denies, Standing Similar symptoms previously: No Recently seen / treated by doctor: No - Related Data Allergies/Adverse Reactions: No Known Allergies Allergy (Verified 11/15/17 11:26) Past Medical History - Social History Smoking Status: Never Smoker Cigarette use (# per day): No Chew tobacco use (# tins/day): No Smoking Education Provided: No Frequency of alcohol use: None Drug Abuse: Bath salts Family History: Arthritis, DM, Hypertension, Malignancy, Other - No early heart attack. No pulmonary emboli. Patient has suicidal ideation: No Patient has homicidal ideation: No - Past Medical History Cardiac Medical History: Denies: Hx Coronary Artery Disease, Hx Heart Attack, Hx Hypertension Pulmonary Medical History: Denies: Hx Asthma, Hx Bronchitis, Hx COPD, Hx Pneumonia Neurological Medical History: Denies: Hx Cerebrovascular Accident, Hx Seizures Endocrine Medical History: Reports: Hx Diabetes Mellitus Type 2 Renal/ Medical History: Denies: Hx Peritoneal Dialysis Musculoskeltal Medical History: Denies Hx Arthritis Psychiatric Medical History: Reports: Hx Anxiety Past Surgical History: Reports: Hx Section, Hx Gynecologic Surgery - fibroid removal - Immunizations Immunizations up to date: Yes Hx Diphtheria, Pertussis, Tetanus Vaccination: Yes Review of Systems - Review of Systems Notes: REVIEW OF SYSTEMS: CONSTITUTIONAL : Denies fever, chills, or sweats. Denies recent illness. EENT: Denies eye, ear, throat, or mouth pain or symptoms. Denies nasal or sinus congestion or discharge. Denies throat, tongue, or mouth swelling or difficulty swallowing. CARDIOVASCULAR: Denies chest pain. Denies palpitations or racing or irregular heart beat. Denies ankle edema. RESPIRATORY: Denies cough, cold, or chest congestion. Denies shortness of breath, difficulty breathing, or wheezing. GASTROINTESTINAL: Denies abdominal pain or distention. Denies nausea, vomiting , or diarrhea. Denies blood in vomitus, stools, or per rectum. Denies black, tarry stools. Denies constipation. GENITOURINARY: Denies difficulty urinating, painful urination, burning, frequency, blood in urine, or discharge. FEMALE GENITOURINARY: Denies vaginal bleeding, heavy or abnormal periods, irregular periods. Denies vaginal discharge or odor. MUSCULOSKELETAL: Denies back or neck pain or stiffness. Denies joint pain or swelling. SKIN: laceration opening HEMATOLOGIC : Denies easy bruising or bleeding. LYMPHATIC: Denies swollen, enlarged glands. NEUROLOGICAL: Denies confusion or altered mental status. Denies passing out or loss of consciousness. Denies dizziness or lightheadedness. Denies headache. Denies weakness or paralysis or loss of use of either side. Denies problems with gait or speech. Denies sensory loss, numbness, or tingling. Denies seizures. PSYCHIATRIC: Denies anxiety or stress. Denies depression, suicidal ideation, or homicidal ideation. ALL OTHER SYSTEMS REVIEWED AND NEGATIVE. PHYSICAL EXAMINATION: GENERAL: Well-appearing, well-nourished and in no acute distress. HEAD: Atraumatic, normocephalic. EYES: Pupils equal round extraocular movements intact, conjunctiva are normal. ENT: Nares patent NECK: Normal range of motion LUNGS: No respiratory distress Musculoskeletal: Normal range of motion NEUROLOGICAL: Normal speech, normal gait. PSYCH: Normal mood, normal affect. SKIN: suture has opening on the right lateral asepct 1cm, no bleeding Dictation was performed using [employer] voice recognition software Physical Exam - Vital signs Vitals: Temp Pulse Resp BP Pulse Ox 98.6 F 101 H 18 119/88 H 95 12/03/17 15:37 12/03/17 15:37 12/03/17 15:37 12/03/17 15:37 12/03/17 15:37 Course - Re-evaluation Re-evalutation: 12/03/17 16:21 The suture has dehisced slightly, there is no infection patient looks well I will discharge home with close follow-up antibiotic ointment After performing a Medical Screening Examination, I estimate there is LOW risk for OPEN FRACTURE, COMPARTMENT SYNDROME, TENDON RUPTURE, ACUTE NEUROVASCULAR INJURY, or RETAINED FOREIGN BODY, thus I consider the discharge disposition reasonable. Also, there is no evidence or peritonitis, sepsis, or toxicity. I have reevaluated this patient multiple times and no significant life threatening changes are noted. The patient and I have discussed the diagnosis and risks, and we agree with discharging home with close follow-up with the understanding that symptoms and presentations can change. We also discussed returning to the Emergency Department immediately if new or worsening symptoms occur. We have discussed the symptoms which are most concerning (e.g., changing or worsening pain, fever, numbness, weakness, cool or painful digits) that necessitate immediate return. - Vital Signs Vital signs: Temp Pulse Resp BP Pulse Ox 98.6 F 101 H 18 119/88 H 95 12/03/17 15:37 12/03/17 15:37 12/03/17 15:37 12/03/17 15:37 12/03/17 15:37 Discharge - Discharge Clinical Impression: section wound complication Condition: Stable Disposition: HOME, SELF-CARE Additional Instructions: Return immediately if there is any drainage fevers or any other concerns
== END 2017-12-03 16:25 | disposition home or self-care (01) ==
LOC: ER 15:29
DX: O90.89 Other complications of the puerperium, not elsewhere classified (principal); E11.9 Type 2 diabetes mellitus without complications
CPT/HCPCS: 99283

== ENCOUNTER 2019-08-02 06:33 | Emergency (ER) | payer MEDICAID ==
[2019-08-02] MEDS ORDERED: PREDNISONE 20 MG TABLET PO ONE (06:58)
[2019-08-02] MEDS ORDERED: IPRATROPIUM/ALBUTEROL 0.5-2.5 MG/3 ML AMPUL NEB ONE ×2 (06:58)
--- NOTE | 2019-08-02 07:04 | ER Document Report ---
ED Respiratory Problem - General Chief Complaint: Shortness Of Breath Stated Complaint: CHEST PAINS Time Seen by Provider: 08/02/19 06:55 Primary Care Provider: MCKENNA CHUA MD [Primary Care Provider] - Follow up as needed Notes: HPI: 33-year-old female with past medical history of diabetes who presents today with the onset yesterday of runny nose, congestion, and cough. She states some anterior chest discomfort with coughing. She denies any sore throat, fever, vomiting, diarrhea, calf pain or leg swelling. No history of asthma or heart failure. ROS: See HPI All other review of systems reviewed and otherwise negative Reviewed vital signs and nursing note as charted by RN. PHYSICAL EXAM: CONSTITUTIONAL: Alert and oriented and responds appropriately to questions. Well-appearing; well-nourished HEAD: Normocephalic; atraumatic EYES: PERRL; Conjunctivae clear, sclerae non-icteric ENT: Normal nose; bilateral copious nonpurulent nasal rhinorrhea; moist mucous membranes; pharynx without lesions noted NECK: Supple without meningismus; non-tender; no cervical lymphadenopathy, no masses CARD: Minimally tachycardic and regular; no murmurs; symmetric distal pulses RESP: Normal chest excursion without splinting or tachypnea; bilateral minimal end expiratory wheezing without rhonchi or rales ABD/GI: Normal bowel sounds; very elevated BMI; soft, non-tender; no palpable organomegaly or masses BACK: The back appears normal and is non-tender to palpation EXT: Normal ROM in all joints; non-tender to palpation; no edema SKIN: No acute lesions noted NEURO: CN 2-12 intact; 5/5 bilateral upper and lower extremity strength with sensation intact to light touch PSYCH: The patient's mood and manner are appropriate. Grooming and personal hygiene are appropriate. TRAVEL OUTSIDE OF THE [place] IN LAST 30 DAYS: No - Related Data Allergies/Adverse Reactions: No Known Allergies Allergy (Verified 11/05/18 21:38) Past Medical History - Social History Smoking Status: Current Some Day Smoker Family History: Arthritis, DM, Hypertension, Malignancy, Other - No early heart attack. No pulmonary emboli. Patient has suicidal ideation: No Patient has homicidal ideation: No - Past Medical History Cardiac Medical History: Denies: Hx Coronary Artery Disease, Hx Heart Attack, Hx Hypertension Pulmonary Medical History: Denies: Hx Asthma, Hx Bronchitis, Hx COPD, Hx Pneumonia Neurological Medical History: Denies: Hx Cerebrovascular Accident, Hx Seizures Endocrine Medical History: Reports: Hx Diabetes Mellitus Type 2 Renal/ Medical History: Denies: Hx Peritoneal Dialysis Musculoskeletal Medical History: Denies Hx Arthritis Psychiatric Medical History: Reports: Hx Anxiety Past Surgical History: Reports: Hx Section, Hx Gynecologic Surgery - fibroid removal - Immunizations Immunizations up to date: Yes Hx Diphtheria, Pertussis, Tetanus Vaccination: Yes Physical Exam - Vital signs Vitals: Pulse Ox 96 08/02/19 06:46 Course - Re-evaluation Re-evalutation: Given the above history and physical we will obtain an x-ray of the chest, EKG, provide nebulizers, obtain an Accu-Chek, and reassess. Patient has been afebrile denies sore throat. I do believe influenza and strep to be negative. 08/02/19 07:04 EKG shows heart of 105, sinus tachycardia, normal axis, no ST elevation or depression. 08/02/19 08:48 X-ray as recorded. Wheezing is improved. Accu-Chek as recorded so patient has been provided a one-time dose of Decadron. We will provide an outpatient albuterol inhaler with strict return precautions. - Vital Signs Vital signs: Temp Pulse Resp BP Pulse Ox 98.4 F 105 H 19 141/90 H 96 08/02/19 06:54 08/02/19 06:54 08/02/19 07:01 08/02/19 07:01 08/02/19 07:01 - Laboratory Laboratory results interpreted by me: 08/02/19 07:24 POC Glucose 115 H Discharge - Discharge Clinical Impression: Nasal congestion, Cough, Wheezing Condition: Good Disposition: HOME, SELF-CARE Additional Instructions: Please take 2 puffs of the albuterol inhaler every 4 hours for the next 48 hours then every 6 hours as needed after that. Please come back immediately with any worsening cough, difficulty breathing or swallowing, persistent vomiting, leg swelling, or any other acute problems. Referrals: MCKENNA CHUA MD [Primary Care Provider] - Follow up as needed
[2019-08-02] MEDS: ALBUTEROL SULFATE 0.083% NEB 2.5 MG/3 ML AMPUL NEB SCH ×2 (07:11→07:37)
[2019-08-02] MEDS ORDERED: DEXAMETHASONE 4 MG TABLET PO ONE (07:25)
--- NOTE | 2019-08-02 07:44 | EKG REPORT ---
SEVERITY:- OTHERWISE NORMAL ECG - SINUS TACHYCARDIA : Confirmed by: Jagdish Martinez MD 02-Aug-2019 07:43:42
--- NOTE | 2019-08-02 08:08 | RADIOLOGY REPORT (SQ) ---
EXAM DESCRIPTION: CHEST 2 VIEWS COMPLETED DATE/TIME: 08/02/2019 7:57 am REASON FOR STUDY: difficulty breathing COMPARISON: 08/20/2015 EXAM PARAMETERS: NUMBER OF VIEWS: two views TECHNIQUE: Digital Frontal and Lateral radiographic views of the chest acquired. RADIATION DOSE: NA LIMITATIONS: none FINDINGS: LUNGS AND PLEURA: No opacities, masses or pneumothorax. No pleural effusion. MEDIASTINUM AND HILAR STRUCTURES: No masses or contour abnormalities. HEART AND VASCULAR STRUCTURES: Heart normal size. No evidence for failure. BONES: No acute findings. HARDWARE: None in the chest. OTHER: No other significant finding. IMPRESSION: NO ACUTE RADIOGRAPHIC FINDING IN THE CHEST. TECHNICAL DOCUMENTATION: JOB ID: [id number] [employer]- All Rights Reserved Reading location - IP/workstation name: [email or web address]
[2019-08-02] MEDS ORDERED: ALBUTEROL SULFATE HFA (90 MCG/PUFF) 8 GM MDI (1 MDI/ER DISP) IH PRN (08:49)
[2019-08-02] MEDS ORDERED: ACETAMINOPHEN 325 MG TABLET PO ONE (09:16)
[2019-08-02] MEDS ORDERED: NORMAL SALINE 1000 ML 1,000 ML IV ONE (09:16)
[2019-08-02] MEDS ORDERED: GUAIFENESIN SYRP 200 MG/10 ML UDC PO ONE (11:39)
[2019-08-02 11:52] VITALS: BP 133/84
== END 2019-08-02 12:00 | disposition home or self-care (01) ==
LOC: ER 06:33
DX: R06.2 Wheezing (principal); R05 Cough; R09.81 Nasal congestion; R07.9 Chest pain, unspecified; R00.0 Tachycardia, unspecified; J34.89 Other specified disorders of nose and nasal sinuses; F17.200 Nicotine dependence, unspecified, uncomplicated; E11.9 Type 2 diabetes mellitus without complications
CPT/HCPCS: 93005; 94640 ×2; 99284; 96360; 96361; 82962; 71046; 93010; J3490 ×4; J7030; J7620; J8540

== ENCOUNTER → 2020-04-11 | Outpatient (CLI) | payer MEDICAID ==
--- NOTE | 2020-04-11 18:35 | RADIOLOGY REPORT (SQ) ---
EXAM DESCRIPTION: U/S NON-OB PELVIS TV W/O DOP IMAGES COMPLETED DATE/TIME: 04/11/2020 6:11 pm REASON FOR STUDY: (D25.9)LEIOMYOMA OF UTERUS, UNSPECIFIED D25.9 LEIOMYOMA OF UTERUS, UNSPECIFIED COMPARISON: None. TECHNIQUE: Dynamic and static grayscale images acquired of the pelvis via transvaginal approach and recorded on PACS. Additional selected color Doppler and spectral images recorded. LIMITATIONS: None. FINDINGS: UTERUS: Enlarged, 12 cm presumed fibroid. ENDOMETRIAL STRIPE: Visualized portion in the lower uterine segment appears normal. CERVIX: No nabothian cysts. RIGHT OVARY AND DOPPLER: Ovary not visualized. LEFT OVARY AND DOPPLER: Ovary not visualized. FREE FLUID: None noted. OTHER: No other significant finding. MEASUREMENTS: UTERUS: 18 x 13 x 11 cm ENDOMETRIAL STRIPE: 7 mm RIGHT OVARY: Not visualized. LEFT OVARY: Not visualized. IMPRESSION: 12 cm presumed fibroid. RN PRODUCTION follow-up recommended. TECHNICAL DOCUMENTATION: JOB ID: [id number] [email or web address]- All Rights Reserved Rev Reading location - IP/workstation name: [email or web address]
== END ==
LOC: RAD 17:14
PROVIDERS: ATTEND Physician Assistant
DX: D25.9 Leiomyoma of uterus, unspecified (principal)
CPT/HCPCS: 76830